=== PATIENT | male | born 1940 | race Caucasian/White ===

== ENCOUNTER 2017-06-27 15:24 | Inpatient (IN) | payer OTHER ==
[~2017-06-27] VITALS: Ht 170.2 cm; Wt 70.3 kg
--- NOTE | ~2017-06-27 | D ---
[facility] [place] [address] DISCHARGE SUMMARY Name: CARLIN BETANCOURT Room #: 419-P [facility] IN M.R.#: [id number] Admission: 06/27/17 Attend Phys: Leland Carbone Discharge: 07/01/17 Date of : 44 Report #: [id number] THIS REPORT FOR: //name// CC: Jerardo Estrada DATE OF SERVICE: 07/01/2017 FINAL DIAGNOSES: 1. Acute diverticulitis. 2. Diabetes type 2. 3. Hypertension. HOSPITAL COURSE: The patient is admitted with abdominal pain and diverticulitis as evidenced by CT as an outpatient. He was seen by Dr. Calvin and Urology team. Ultimately, the plans were conservative medical treatment at this point with studies as an outpatient including a CT with contrast and consider a cystoscopy. Home medications were continued. He was noted to have some microcytic anemia and there was 1 heme negative stool. With antibiotics, his pain resolved and he was tolerating a regular diet. DISPOSITION: He will be discharged to home with diet. Activity as tolerated. Follow up with Dr. Estrada, Dr. Calvin and the urologist within 2 weeks. He will be on Cipro for an additional week and resume all other home medications. <ELECTRONICALLY SIGNED> By: Satya Lopez MD 07/05/17 1155 1303 1327 Satya Lopez MD /miguel
--- NOTE | ~2017-06-27 | HC ---
[facility] [place] [address] CONSULTATION Name: CARLIN BETANCOURT Room #: 419-P [facility] IN M.R.#: [id number] Admission: 06/27/17 Attend Phys: Leland Carbone Discharge: 07/01/17 Date of : 44 Report #: [id number] THIS REPORT FOR: //name// CC: Adeel Estrada DATE OF SERVICE: 06/28/2017 REASON FOR CONSULTATION: Acute diverticulitis. HISTORY OF PRESENT ILLNESS: The patient is a 76-year-old who did not feel well, which has been going on for about a month. He said he felt constipated feeling. Discomfort in the abdomen. This got worse and the patient saw Dr. Adeel Estrada. The patient was treated with 10 days of antibiotics 3 weeks ago. He said it improved, but did not completely resolve. A few years ago, he had another episode of diverticulitis that he said was a mild attack, treated with oral antibiotic and cleared up. He has bouts of constipation. No history of diarrhea. The patient went back to see Dr. Estrada who did a CT scan, there is evidence on [facility] that showed diverticulitis and some air bubble between the colon and the bladder. He said he has had some burning feeling with urination. He was told he had a slight infection. He denies any pneumaturia. His appetite is decreased. He did have some night sweats between 2-1/2 to 3 weeks ago. PAST SURGICAL HISTORY: The patient has had prostate surgery, coronary artery bypass surgery. PAST MEDICAL HISTORY: History of high blood pressure, diabetes, elevated cholesterol, hiatal hernia. PHYSICAL EXAMINATION: GENERAL: The patient is not in acute distress. He is alert and oriented. ABDOMEN: There is a little midline incision. He is soft and nondistended. Not really eliciting any remarkable tenderness. No mass. No guarding, no rigidity. Bowel sounds are normal. No rebound. IMPRESSION: The patient is a 76-year-old with a diverticulitis. He has not been feeling well for about a week. He denies early pain. I do not know if his diabetes is altering the way he feels pain. I have got the CT report, but do not have the images to look at. We will try to obtain a copy of the disk to load and look at. At this point, I think he can have clear liquids. His home medication can be restarted. The patient should do well with antibiotics. There is concern for a possible colovesical fistula. The patient may need to have a cystoscopy if it is still suspicious. I will go ahead and repeat his [address] [address] CONSULTATION Name: CARLIN BETANCOURT Room #: 419-P [facility] IN M.R.#: [id number] Admission: 06/27/17 Attend Phys: Leland Carbone Discharge: 07/01/17 Date of : 44 Report #: [id number] urinalysis. The patient is currently on Zosyn. He has not really required any pain medication. <ELECTRONICALLY SIGNED> By: Yakov Calvin MD 07/08/17 1111 1515 2319 Yakov Calvin MD /nt
--- NOTE | ~2017-06-27 | H ---
[facility] [place] [address] HISTORY AND PHYSICAL Name: CARLIN BETANCOURT Room #: 419-P ADM IN M.R.#: [id number] Admission: 06/27/17 Attend Phys: Leland Carbone Discharge: Date of : 42 Report #: [id number] THIS REPORT FOR: //name// CC: Jerardo Estrada CHIEF COMPLAINT: Abdominal pain. HISTORY OF PRESENT ILLNESS: The patient is a 76-year-old gentleman who is admitted from the office with abdominal pain for a week or two. He has had some discomfort in the left lower quadrant and lower pelvic area. He reports a sensation of "constipation" or fullness in the area. He has had some pain and was seen in the office and given a course of what he thinks is antibiotics. However, his symptoms did not improve and earlier this week, he was sent for a CT of the abdomen by Dr. Estrada. I do not have a copy of the report nor the scan as it was obtained at diagnostic [facility]. However, in reviewed Dr. Estrada's office notes, the CT revealed microperforation and diverticulitis with involvement of the bladder wall. He has been admitted for treatment. PAST MEDICAL HISTORY: Coronary artery disease with a cardiac bypass in 2009, hypertension, dyslipidemia, diabetes type 2, GERD and history of prostate cancer with prostatectomy in 2005. Apparently, he had a colonoscopy and EGD in 2014 that only showed a hiatal hernia. This was done at [facility] according to the office notes. He has a history of peripheral vascular disease. PAST SURGICAL HISTORY: As above. FAMILY HISTORY: Noncontributory. SOCIAL HISTORY: He is living at home. No chronic alcohol or tobacco use. ALLERGIES: No known drug allergies. MEDICATIONS: Glipizide 2.5 mg, metformin 500 mg b.i.d., iron, aspirin 81 mg, Toprol-XL 50 mg, isosorbide 30 mg b.i.d., Lipitor 80 mg and lisinopril 20 mg. REVIEW OF SYSTEMS: He denies headache, chest pain, shortness of breath, productive cough, diarrhea, bloody stools, myalgias, arthralgias, syncope or fall. PHYSICAL EXAMINATION: VITAL SIGNS: Temperature 36.7, pulse 80, respirations 16, blood pressure 109/56 and O2 sat 100% on room air. GENERAL: He is awake and alert, lying in bed in no distress. HEAD AND NECK: Unremarkable. LUNGS: Clear. HEART: Regular. ABDOMEN: Soft, normoactive bowel sounds. No rebound or guarding. [address] [address] HISTORY AND PHYSICAL Name: CARLIN BETANCOURT Room #: 419-P [facility] IN M.R.#: [id number] Admission: 06/27/17 Attend Phys: Leland Carbone Discharge: Date of : 42 Report #: [id number] EXTREMITIES: No edema. NEUROLOGIC: Motor strength 5/5 throughout. LABORATORY DATA: Lab review, white count is 7, hemoglobin 10.7 and MCV 77.5. Basic chemistry was unremarkable. ASSESSMENT AND PLAN: 1. Acute diverticulitis. 2. Microcytic anemia. 3. Diabetes type 2. 4. Coronary artery disease. 5. Hypertension. 6. Peripheral vascular disease. 7. Mild protein-calorie malnutrition. Albumin 2.9. PLAN: He is admitted for surgical evaluation. At this point, he had remained n.p.o. with IV antibiotics and IV fluids. I will hold his medications from home for now and his blood pressure is stable. Dr. Calvin has been consulted. Iron and guaiac studies for now. SCDs for DVT prophylaxis and we will hold on anticoagulation for concern of possible surgical intervention indicated, but there may be signs of bleeding given microcytic anemia. <ELECTRONICALLY SIGNED> By: Satya Lopez MD 06/29/17 0937 1041 1122 Satya Lopez MD /nt
[~2017-06-27 15:24] MED LIST: LISINOPRIL-HCT1 EACH PO; NITROGLYCERIN0.4 MG PO; NORVASC 5 MG TAB5 MG PO; PRILOSEC 20 MG20 MG PO; TOPROL XL50 MG PO; ZOCOR40 MG PO
[2017-06-27] MEDS ORDERED: LIPITOR80 MG PO (18:41)
[2017-06-27] MEDS ORDERED: LISINOPRIL20 MG PO (18:42)
[2017-06-27] MEDS ORDERED: GLUCOTROL5 MG PO (18:42)
[2017-06-27] MEDS ORDERED: IMDUR 30 MG TAB30 M1 PO (18:42)
[2017-06-27] MEDS ORDERED: METFORMIN HCL500 MG PO (18:43)
[2017-06-27] MEDS ORDERED: TOPROL XL100 MG PO (18:44)
[2017-06-27] MEDS ORDERED: PROTONIX40 M1 PO (18:44)
[2017-06-27 19:09] LABS: EOSINOPHILS 1.6 % (0.0-3.0); HEMATOCRIT 33.5 % (42.0-52.0); HEMOGLOBIN 10.6 gm/dL (14.0-18.0); LYMPHOCYTES 12.8 % (24.0-44.0); MCH 24.4 pg (26.0-34.0); MCHC 31.5 g/dL (28.0-37.0); MCV 77.6 fL (80.0-100.0); MONOCYTES 7.7 % (1.0-8.0); PLATELET COUNT 321 thou/uL (150-400); POLYS 76.9 % (36.0-66.0); RBC 4.32 mil/uL (4.50-6.00); RDW 15.5 % (10.5-14.5); WBC 10.5 thou/uL (4.0-11.0)
[2017-06-27 19:10] LABS: MANUAL DIFF NO
[2017-06-27 19:18] LABS: CALCIUM 9.1 mg/dL (8.5-10.1); CREATININE 1.1 mg/dL (0.7-1.3); POTASSIUM 4.7 mmol/L (3.5-5.1)
[2017-06-27 19:21] VITALS: BP 130/63
[2017-06-27 19:23] LABS: ALBUMIN 2.9 g/dL (3.4-5.0); TOTAL BILIRUBIN 0.5 mg/dL (<0.1-1.0)
[2017-06-28 03:58] VITALS: BP 133/77
[2017-06-28 06:23] LABS: HEMATOCRIT 33.7 % (42.0-52.0); HEMOGLOBIN 10.7 gm/dL (14.0-18.0); MCH 24.7 pg (26.0-34.0); MCHC 31.8 g/dL (28.0-37.0); MCV 77.5 fL (80.0-100.0); RBC 4.35 mil/uL (4.50-6.00); RDW 15.9 % (10.5-14.5)
[2017-06-28 06:34] LABS: CALCIUM 8.8 mg/dL (8.5-10.1); CREATININE 1.1 mg/dL (0.7-1.3); POTASSIUM 4.5 mmol/L (3.5-5.1)
[2017-06-28 07:37] VITALS: BP 109/56
[2017-06-28 10:58] LABS: % SATURATION 18 % (20-39); IRON 43 ug/dL (65-175); TIBC 243 ug/dL (250-450); UIBC 200 ug/dL
[2017-06-28 17:33] VITALS: BP 118/71
[2017-06-28 20:41] VITALS: BP 116/68
[2017-06-28 23:08] LABS: URINE BILIRUBIN NEGATIVE (Negative); URINE BLOOD 2+ (Negative); URINE COLOR YELLOW; URINE GLUCOSE-RANDOM* NEGATIVE (Negative); URINE KETONES NEGATIVE (Negative); URINE PROTEIN (DIPSTICK) 1+ (Negative)
[2017-06-28 23:11] LABS: URINE LEUKOCYTES-REFLEX 3+ (Negative)
[2017-06-28 23:17] LABS: CASTS None Seen /LPF (None Seen); CRYSTALS None Seen /LPF (None Seen); SQUAMOUS None Seen /LPF (0-3); URINE WBC-REFLEX >25 Many /HPF (0-5)
[2017-06-29 04:00] VITALS: BP 143/79
[2017-06-29 04:38] LABS: ABSOLUTE NEUTROPHILS 4.2 thou/uL (1.4-8.2); BASOPHILS 0.7 % (0.0-2.0); EOSINOPHILS 5.2 % (0.0-3.0); HEMATOCRIT 31.9 % (42.0-52.0); LYMPHOCYTES 17.2 % (24.0-44.0); MCH 24.7 pg (26.0-34.0); MCHC 31.5 g/dL (28.0-37.0); MCV 78.4 fL (80.0-100.0); MONOCYTES 10.1 % (1.0-8.0); PLATELET COUNT 270 thou/uL (150-400); POLYS 66.8 % (36.0-66.0); RBC 4.07 mil/uL (4.50-6.00); RDW 15.7 % (10.5-14.5); WBC 6.2 thou/uL (4.0-11.0)
[2017-06-29 04:42] LABS: MANUAL DIFF NO
[2017-06-29 04:52] LABS: ALBUMIN 2.5 g/dL (3.4-5.0); CALCIUM 8.6 mg/dL (8.5-10.1); CREATININE 1.1 mg/dL (0.7-1.3); POTASSIUM 4.2 mmol/L (3.5-5.1); TOTAL BILIRUBIN 0.5 mg/dL (<0.1-1.0); TOTAL PROTEIN 6.1 g/dL (6.4-8.2)
[2017-06-29 07:19] VITALS: BP 151/100
[2017-06-29 15:29] VITALS: BP 117/71
[2017-06-29 21:30] VITALS: BP 147/72
[2017-06-30 04:30] VITALS: BP 141/8
[2017-06-30 07:25] VITALS: BP 141/80
[2017-06-30 16:00] VITALS: BP 106/61
[2017-06-30 19:20] VITALS: BP 126/71
[2017-07-01 03:47] LABS: HEMATOCRIT 32.8 % (42.0-52.0); HEMOGLOBIN 10.3 gm/dL (14.0-18.0); MCH 24.6 pg (26.0-34.0); MCHC 31.3 g/dL (28.0-37.0); MCV 78.6 fL (80.0-100.0); RBC 4.18 mil/uL (4.50-6.00); WBC 6.7 thou/uL (4.0-11.0)
[2017-07-01 04:02] LABS: CALCIUM 8.2 mg/dL (8.5-10.1); CREATININE 1.2 mg/dL (0.7-1.3); POTASSIUM 4.3 mmol/L (3.5-5.1)
[2017-07-01 04:22] VITALS: BP 144/70
[2017-07-01 08:33] VITALS: BP 176/89
[2017-07-01] MEDS ORDERED: CIPROFLOXACIN250 M2 PO (12:31)
[2017-07-01 12:34] VITALS: BP 176/89
[2017-07-01 12:40] VITALS: BP 176/89
== END 2017-07-01 13:13 | disposition home or self-care (01) | DRG 391 ==
LOC: 4E 15:24
PROVIDERS: Internal Medicine Geriatric Medicine; Surgery
DX: K57.80 Diverticulitis of intestine, part unspecified, with perforation and abscess without bleeding (principal); E43 Unspecified severe protein-calorie malnutrition; N39.0 Urinary tract infection, site not specified; I25.10 Atherosclerotic heart disease of native coronary artery without angina pectoris; I10 Essential (primary) hypertension; K21.9 Gastro-esophageal reflux disease without esophagitis; E11.51 Type 2 diabetes mellitus with diabetic peripheral angiopathy without gangrene; D50.9 Iron deficiency anemia, unspecified; K59.00 Constipation, unspecified; E78.00 Pure hypercholesterolemia, unspecified; Z28.21 Immunization not carried out because of patient refusal; Z95.1 Presence of aortocoronary bypass graft; Z85.46 Personal history of malignant neoplasm of prostate; Z68.24 Body mass index [BMI] 24.0-24.9, adult
CPT/HCPCS: 10183

== ENCOUNTER 2018-04-17 05:18 | Inpatient (IN) | payer OTHER ==
[~2018-04-17] VITALS: Ht 172.7 cm; Wt 75.2 kg
--- NOTE | ~2018-04-17 | EKG ---
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
--- NOTE | ~2018-04-17 | O ---
[facility] [place] [address] OPERATIVE REPORT Name: CARLIN BETANCOURT Room #: 201-P [facility] IN M.R.#: [id number] Admission: 04/17/18 Attend Phys: Yakov Calvin MD Discharge: Date of : 42 Report #: [id number] THIS REPORT FOR: //name// CC: Adeel Calvin DATE OF SERVICE: 04/17/2018 PREOPERATIVE DIAGNOSES: 1. Paraesophageal hiatal hernia with a large amount of stomach herniated into the chest. 2. Gastroesophageal reflux with Coombs's esophagus. POSTOPERATIVE DIAGNOSES: 1. Paraesophageal hiatal hernia with a large amount of stomach herniated into the chest. 2. Gastroesophageal reflux with Coombs's esophagus. PROCEDURES PERFORMED: 1. Repair of paraesophageal hiatal hernia with Phasix mesh. 2. Partial fundoplication with 270-degree Toupet fundoplication. ANESTHESIA: General. SURGEON: Yakov Calvin MD. COMPLICATIONS: None. ESTIMATED BLOOD LOSS: 20 mL. PROCEDURE NOTE: With the patient under general anesthesia in the lithotomy position, abdomen was prepped and draped in sterile fashion. Rodrigues catheter was placed. IV antibiotic was administered. A 2 cm transverse incision was made about 8-10 cm above the umbilicus. Fascia was isolated, grasped with hemostat, opened under visualization, 0 Vicryl suture placed on the fascia edges for retraction. Veress needle was then placed through the peritoneum. Abdominal cavity was insufflated with CO2 without difficulty. Initially, I think the Veress needle was in the falciform ligament. Then, I redirected in and got CO2 established without difficulty. An 11 mm trocar was then placed without difficulty under visualization into the pneumoperitoneum. A 5 mm trocar was placed in right upper quadrant and a 5 mm trocar placed in the epigastrium, 11 mm trocar placed in the left midclavicular line and a 5 mm trocar was placed in the left anterior axillary line. The patient was placed in a [address] [address] OPERATIVE REPORT Name: BETANCOURT,CARLIN Brian Room #: 201-P [facility] IN M.R.#: [id number] Admission: 04/17/18 Attend Phys: Yakov Calvin MD Discharge: Date of : 42 Report #: [id number] Trendelenburg position. Liver retractor was placed through the 5 mm right upper quadrant trocar. This was held in place and clamped to keep it there. The gastrohepatic ligament was divided. The space was entered without difficulty. This was dissected towards the diaphragm. The stomach was noted to be herniating up into the chest, probably about half of the stomach. The hernia defect is fairly large size. The hernia sac was divided at about 12 o'clock position, carried across to the patient's right side. The hernia sac was followed into the chest and then fairly easily brought down into the abdomen. The hernia sac was then freed around the greater curve also. The gastrocolic omentum and the gastrosplenic attachments were free. The Harmonic scalpel was used to perform this. Lesser sac was entered. Stomach was free from the spleen completely and free from the diaphragm. The rest of the hernia sac was also able to be dissected out of the chest. The excess hernia sac was divided with a Harmonic scalpel. The esophagus was identified. The esophagus was free from the areolar tissue in the chest. was visualized and preserved from harm. The GE junction was then brought down into the abdominal cavity. There is some fat in this area, was difficult to tell the exact site of the GE junction, but the stomach wall and the striated muscular fibers of the esophagus was able to be identified. The diaphragm was then closed. This was closed with a 0 silk suture using pledget of small pieces of Phasix. The first stitch went in well. The second stitch and a subsequent stitch started to cut through the muscle fiber on the right crura. The patient's hernia defect was large, which created tension in pulling the crura together. A #50 Bougie was placed in the esophagus down into the stomach with me guiding it and the diaphragm was closed around this with the Bougie directing how tight it would be. There is one single stitch placed anterior part of the diaphragm. The defect in the right crura was patched with Phasix mesh. The mesh was trimmed to fit and then moistened and then placed through the 11-mm trocar. Part of the mesh was brought in underneath the GE junction to the patient's left side. The rest of the mesh sat on the patient's right side. The mesh was sewn with multiple sutures of CV-O2 Shandaken-Davi suture placing through the diaphragm and then through the mesh material. The mesh was sewn to the fascia lateral to where the diaphragm . Essentially, this was a relaxing incision, which was then covered by the mesh. The mesh was also sewn on the left side and then the mesh was then also tacked with SorbaFix. The patient did have a preop manometry last Sunday and it did show decreased motility in the esophagus. A partial 270-degree wrap is planned. The fundus of the stomach was brought underneath the GE junction. This was then sewn first stitch to the proximal stomach and then the two other stitches placed on the esophagus. Again, pledgeted suture of 0 silk was used. The medial side was performed this way and then the lateral side was similarly performed with 3 separate sutures of 0 silk with pledget suture. A 270-degree fundoplication was created this way. The dilator was then removed. No bleeding was identified. Irrigation was performed. Irrigation was aspirated out. An 11 mm trocar in the left midclavicular line was closed with 0 PDS suture with a suture retrieval. [facility] [email or web address] [address] OPERATIVE REPORT Name: CARLIN BETANCOURT Room #: 201-P [facility] IN ..#: [id number] Admission: 04/17/18 Attend Phys: Yakov Calvin MD Discharge: Date of : 42 Report #: [id number] The CO2 was evacuated. Due to the patient's body habitus, the CO2 did track up into the neck, which is not unusual. The CO2 was evacuated from the abdominal cavity. The defect that I originally placed to go in was closed with [id number] 0 Vicryl x 2. Skin was irrigated. Skin was closed with 5-0 PDS, Band-Aids. Steri-Strip was applied. The patient was awakened. The patient was kept on the ventilator to allow the CO2 to get out of his system. He was then extubated in the recovery room. The patient tolerated the procedure well. <ELECTRONICALLY SIGNED> By: Yakov Calvin MD 04/18/18 1042 2155 0004 Yakov Calvin MD /miguel
--- NOTE | ~2018-04-17 | H ---
[facility] [place] [address] HISTORY AND PHYSICAL Name: CARLIN BETANCOURT Room #: 201-P [facility] IN ..#: [id number] Admission: 04/17/18 Attend Phys: Yakov Calvin MD Discharge: Date of : 42 Report #: [id number] THIS REPORT FOR: //name// CC: DEVORA Calvin DATE OF SERVICE: 04/17/2018 PREOPERATIVE DIAGNOSIS: Large paraesophageal hiatal hernia with gastroesophageal reflux, Coombs's esophagus, Dominik ulcer, and history of anemia. HISTORY OF PRESENT ILLNESS: The patient is a 77-year-old who has been having increasing trouble from a paraesophageal hiatal hernia. The patient has been seen by pipe bowls paint trimmer who recommended surgical evaluation. The patient has a history of long segment of Coombs's esophagus without dysplasia. There is a large paraesophageal hiatal hernia. He is complaining of intermittent pain when food would have difficult time passing down. The patient was hospitalized in 2014 for iron deficiency anemia. This was felt to be secondary to the paraesophageal hiatal hernia and ulcerations. He has had hemoglobin in the range of 11.7. The patient because of the symptomatic nature and difficulty swallowing and history of anemia, reflux with Coombs's changes is recommended to undergo repair of his paraesophageal hiatal hernia and fundoplication. He did have a manometry performed, which did show a decreased peristalsis. The patient will likely have to have a 270-degree wrap rather than a full Jaswinder fundoplication. PAST MEDICAL HISTORY: Has a history of high blood pressure, heart disease, coronary artery disease, diabetes, elevated cholesterol. PAST SURGICAL HISTORY: He has had coronary artery bypass surgery, prostate surgery. MEDICATIONS: He is on the metformin. ALLERGIES: He does not have any allergies. FAMILY HISTORY: There is diabetes and heart disease on the father's side, lung problem on the mother's side. SOCIAL HISTORY: The patient is retired. Does not smoke or drink. REVIEW OF SYSTEMS: Recently had a stent for renal artery. 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 PHYSICAL EXAMINATION: GENERAL: He is an elderly male who is not in acute distress. He is alert and oriented. HEENT: Pupils react to light. Extraocular muscles are intact. Oropharynx clear. NECK: Soft and supple, no masses. LUNGS: Clear to auscultation. HEART: Regular rate and rhythm. No murmur or gallop. ABDOMEN: Soft, nondistended, nontender. No mass, guarding, rigidity, rebound. EXTREMITIES: No cyanosis, clubbing or edema. IMPRESSION AND PLAN: The patient is a 77-year-old who has history of a large paraesophageal hiatal hernia for many years. He was anemic. He was worked up for anemia in 2014. The patient was found to have bleeding from complications related to his paraesophageal hiatal hernia. He is symptomatic with upper abdominal distress periodically. He also has reflux with Coombs's esophagus. No dysplasia. Repair of the paraesophageal hiatal hernia is recommended along with fundoplication. The patient does have poor peristaltic wave and will require partial fundoplication, i.e., Toupet procedure. This was discussed with the patient. Risk of procedure including injury of the esophagus was discussed, hernia recurrence, continued reflux issues. The patient understands the procedure, the risks involved. The patient wishes to proceed. The patient stopped his Plavix 7 days before the procedure and wishes to proceed. <ELECTRONICALLY SIGNED> By: Yakov Calvin MD 04/18/18 1042 2242 2325 Yakov Calvin MD /nt
--- NOTE | ~2018-04-17 | HC ---
[facility] [place] [address] CONSULTATION Name: CARLIN BETANCOURT Room #: 201-P [facility] IN M.R.#: [id number] Admission: 04/17/18 Attend Phys: Yakov Calvin MD Discharge: 04/19/18 Date of : 42 Report #: [id number] THIS REPORT FOR: //name// CC: Jerardo Calvin DATE OF SERVICE: 04/17/2018 HISTORY OF PRESENT ILLNESS: The patient is a 77-year-old male who is also followed by Dr. Adeel Estrada. He is status post hernia repair for a large paraesophageal hiatal hernia. Also, has a history of Coombs's esophagus and ulcer. He is postop from Dr. Calvin. He is hemodynamically stable. Denies chest pain or angina. He remains in sinus rhythm. EKG, there are no changes noted. History of coronary artery disease and a prior bypass. Underwent cardiac catheterization in January, so 2 months ago that revealed LV function to be normal. The LAD occluded and the proximal circumflex was occluded. There was a FRAUSTO that was intact to the LAD with diffuse distal disease. The [place] right was occluded. The SVG to the PDA was intact and filled the PDA and the ROSE briskly. This was a large dominant system and there was a vein graft filling the circ OM system with moderate disease, small caliber. He does not have any anginal type symptoms. No PND or orthopnea. He has done well prior to this operation. Looks to be stable postoperatively. MEDICATIONS: Have included glipizide, Imdur 30, lisinopril 20, metformin 500, omeprazole, atorvastatin 80, baby aspirin and amlodipine 5. PAST MEDICAL HISTORY: Positive for coronary artery disease with bypass surgery, catheterization in January 2018, hypertension, hypercholesterolemia, diabetes, DJD, reflux with esophagitis, Coombs esophagus ulcer and large hiatal hernia, status post repair. EKG is sinus rhythm with right bundle branch block. SOCIAL HISTORY: Former tobacco user, couple of beers a week, 2-3 cups of coffee. He is retired. He is active, but no regular exercise. ALLERGIES: No known drug allergies. FAMILY HISTORY: Both parents had premature coronary artery disease. Both were diabetics. LABORATORY DATA: Creatinine 1.4, potassium 5.0. Liver function tests were normal. H and H 11.2 and 34.7. REVIEW OF SYSTEMS: Essentially negative except for the ulcer issues and the occasional nocturia and hesitancy. PHYSICAL EXAMINATION: [facility] [address] [place] [address] CONSULTATION Name: CARLIN BETANCOURT Room #: 201-P [facility] IN .R.#: [id number] Admission: 04/17/18 Attend Phys: Yakov Calvin MD Discharge: 04/19/18 Date of : 42 Report #: [id number] GENERAL: Complaining of some constipation, otherwise minimal discomfort postop. VITAL SIGNS: Blood pressure 140/74, pulse 70s and sinus. HEENT: Eyes reveal xanthelasmas. Pharynx is clear. NECK: Shows preserved upstrokes without JVD or bruits. LUNGS: Clear. CARDIOVASCULAR: Regular rate and rhythm, S1, S2, distant heart tones. ABDOMEN: Postop slightly distended, a few bowel sounds. Diffusely tender. No rebound. EXTREMITIES: Reveal no significant edema. Distal pulses were diminished, but intact. NEUROLOGIC: Nonfocal. SKIN: Warm and dry without xanthoma or ulcer. MUSCULOSKELETAL: Generalized arthritic changes. ASSESSMENT: 1. Coronary artery disease with prior coronary artery bypass graft, recent catheterization as described above. 2. Hypertension. 3. Hypercholesterolemia. 4. Postoperative paraesophageal hiatal hernia repair. 5. Diabetes. 6. Degenerative joint disease. RECOMMENDATIONS AND PLAN: We will continue to follow with you. He appears to be stable hemodynamically. Reinstitute medications. A.m. EKG. Heart rate, blood pressure currently well controlled. We will continue to follow. <ELECTRONICALLY SIGNED> By: Migel Mayers MD, FACC 05/01/18 1257 [id number] Migel Mayers MD, FACC /nt
--- NOTE | ~2018-04-17 | EKG ---
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
--- NOTE | ~2018-04-17 | PATH ---
[facility] [address] [place] [address] PATHOLOGY RPT PROCEDURE Name: BETANCOURT,CARLIN Brian Room #: 201-P [facility] IN M.R.#: [id number] Admission: 04/17/18 Date of : 44 Discharge: 04/19/18 Report #: [id number] Path Case #: [id number] [facility] Accession Number: [id number] . 01 Material submitted: . HERNIA SAC . 01 Clinical history: . Hiatal hernia . 02 Diagnosis: Fibrovascular connective tissue, hernia sac, repair: - Marked congestion as well as reactive changes in tissue lined by mesothelium, consistent with a hernia sac. - Fragments of reactive nerves as well as numerous vessels amidst fibroadipose connective tissue showing reactive changes. (IUV/db; 04/18/18) LBQ/04/18/2018 . 02 Electronically signed: . Ann Marie Yu MD, Pathologist NPI- [id number] . 01 Gross description: . The specimen is received in formalin, labeled "Carlin Betancourt, hernia sac", are several irregular fragments of fibromembranous tissue measuring 7.0 x 5.0 x 1.5 cm in aggregate. No discrete nodules or masses identified. Mottle Lay Up Operator tissue is submitted in A1. (SWS; 04/17/2018) SHS/SHS . 02 Pathologist provided ICD-10: K46.9 . 02 CPT . 348428 Specimen Comment: A courtesy copy of this report has been sent to Specimen Comment: [phone], . Specimen Comment: Report sent to / DR ARCHULETA Specimen Comment: A duplicate report has been generated due to demographic updates. Performed at: 01 [place] [id number] [id number] MD Julio C Williamson MD Phone: [phone] Performed at: 02 [facility] [address] [place] [address] PATHOLOGY RPT PROCEDURE Name: CARLIN BETANCOURT Room #: 201-P [facility] IN M.R.#: [id number] Admission: 04/17/18 Date of : 44 Discharge: 04/19/18 Report #: [id number] Path Case #: [id number] [address] [place], [place] [id number] MD Ann Marie Yu MD Phone: [phone]
[~2018-04-17 05:18] MED LIST changes: +ASPIR 8181 MG PO; +CIPROFLOXACIN250 M2 PO; +GLIPIZIDE ER2.5 MG PO; +GLUCOTROL5 MG PO; +IMDUR 30 MG TAB30 M1 PO; +IRON325 PO; +LIPITOR80 MG PO; +LISINOPRIL20 MG PO; +METFORMIN HCL500 MG PO; +NORVASC5 MG PO; +PLAVIX 75 MG TA75 M1 PO; +PROTONIX40 M1 PO; +TOPROL XL100 MG PO
[2018-04-17 09:18] LABS: CALCIUM 9.7 mg/dL (8.5-10.1); CREATININE 1.4 mg/dL (0.7-1.3)
[2018-04-17 09:24] LABS: ALBUMIN 3.7 g/dL (3.4-5.0); TOTAL BILIRUBIN 0.7 mg/dL (<0.1-1.0); TOTAL PROTEIN 7.6 g/dL (6.4-8.2)
[2018-04-17 09:39] VITALS: BP 129/73
[2018-04-17 16:08] LABS: HEMATOCRIT 34.7 % (42.0-52.0); HEMOGLOBIN 11.2 gm/dL (14.0-18.0)
[2018-04-17 17:28] VITALS: BP 126/61
[2018-04-17 19:28] VITALS: BP 139/75
[2018-04-18 03:22] LABS: CALCIUM 8.7 mg/dL (8.5-10.1); CREATININE 1.3 mg/dL (0.7-1.3); POTASSIUM 5.2 mmol/L (3.5-5.1)
[2018-04-18 03:49] VITALS: BP 137/68
[2018-04-18 04:07] LABS: HEMATOCRIT 35.8 % (42.0-52.0); HEMOGLOBIN 11.8 gm/dL (14.0-18.0); MCH 26.2 pg (26.0-34.0); MCV 79.6 fL (80.0-100.0); RBC 4.5 mil/uL (4.50-6.00); RDW 14.8 % (10.5-14.5); WBC 8.4 thou/uL (4.0-11.0)
[2018-04-18 07:16] VITALS: BP 142/76
[2018-04-18 11:13] VITALS: BP 120/69
[2018-04-18 16:37] VITALS: BP 142/80
[2018-04-18 19:14] VITALS: BP 132/80
[2018-04-19 00:25] VITALS: BP 170/64
[2018-04-19 00:27] VITALS: BP 141/88
[2018-04-19 04:53] VITALS: BP 147/83
[2018-04-19 08:01] VITALS: BP 161/83
[2018-04-19 11:28] VITALS: BP 161/83
== END 2018-04-19 12:32 | disposition home or self-care (01) | DRG 328 ==
LOC: TBA 05:18 → 2N 05:18 → PRE 06:38 → OR 13:10 → PRE 13:11 → OR 15:09 → EDSTATUS 16:13 → PRE 16:18 → 2N 17:24 → ENTRNSPT 04-19 12:15 → EDTRNSPTSTS 04-19 12:17 → 2N 04-19 12:32
PROVIDERS: Anesthesiology; Surgery
PROC: 0DV44ZZ Restriction of Esophagogastric Junction, Percutaneous Endoscopic Approach (ICD-10-PCS; principal; 2018-04-17)
PROC: 0BUT4JZ Supplement Diaphragm with Synthetic Substitute, Percutaneous Endoscopic Approach (ICD-10-PCS; principal; 2018-04-17)
DX: K44.9 Diaphragmatic hernia without obstruction or gangrene (principal); K21.9 Gastro-esophageal reflux disease without esophagitis; K22.70 Barrett's esophagus without dysplasia; I25.10 Atherosclerotic heart disease of native coronary artery without angina pectoris; E11.9 Type 2 diabetes mellitus without complications; D64.9 Anemia, unspecified; E78.00 Pure hypercholesterolemia, unspecified; M19.90 Unspecified osteoarthritis, unspecified site; Z87.891 Personal history of nicotine dependence; Z95.1 Presence of aortocoronary bypass graft; Z79.84 Long term (current) use of oral hypoglycemic drugs; Z79.899 Other long term (current) drug therapy; Z82.49 Family history of ischemic heart disease and other diseases of the circulatory system
CPT/HCPCS: 10797; 50010; 50101; 50249; 50411; 50455; 50555; 50558; 50848; 51474; 51489; 53307; 53310; 53335; 54022; 54118; 56462; 56524; 56525; 56526; 56530; 62110; 62900; 70005